=== PATIENT | female | born 1945 | race Caucasian/White ===

== ENCOUNTER 2021-02-01 14:10 | Inpatient (IN) | payer OTHER ==
[~2021-02-01] VITALS: Ht 165.1 cm; Wt 82.8 kg
[~2021-02-01 14:10] MED LIST: ALBU90OI; CONEST.625; DESL5 PO; Estradiol1 MG; FLUSAL1005; FLUT220OIA; GABA100; GRALISE1 EACH; HYDCHL12.5 PO; IPRA.06NI; LEVSOD100 PT; LEVSOD50; LORA10; METF500C PO; OXYACE5T PO; PRAV20; PROACE100; Prilosec Otc20 MG; SALM50IP; VITAMIN D31000 UNI1 PO
[2021-02-01] MEDS ORDERED: TRAM50 PO (14:25)
[2021-02-01] MEDS ORDERED: Prinivil10 MG PO (14:27)
[2021-02-01] MEDS ORDERED: MONT10T PO (14:28)
[2021-02-01] MEDS ORDERED: Ventolin/Prove6.7 GM INH (14:29)
[2021-02-01 14:32] LABS: BASOPHILS ABSOLUTE AUTO 0.05 K/mm3 (0.00-0.23); BASOPHILS PERCENT AUTO 1 % (0-2); EOSINOPHILS ABSOLUTE AUTO 0.05 K/mm3 (0.00-0.68); EOSINOPHILS PERCENT AUTO 1 % (0-6); Hematocrit 40.6 % (33.0-51.0); Hemoglobin 13.6 g/dL (11.5-16.0); IMMATURE GRAN ABSOLUTE AUTO 0.02 K/mm3 (0.00-0.10); IMMATURE GRAN PERCENT AUTO 0 % (0-1); LYMPHOCYTES ABSOLUTE AUTO 1.75 K/mm3 (0.84-5.20); LYMPHOCYTES PERCENT AUTO 19 % (21-46); MONOCYTES ABSOLUTE AUTO 0.68 K/mm3 (0.16-1.47); MONOCYTES PERCENT AUTO 7 % (4-13); Mean Corpuscular HGB 29.8 pg (26.0-34.0); Mean Corpuscular HGB Conc 33.5 g/dL (31.5-36.5); Mean Corpuscular Volume 89 fL (80-100); NEUTROPHILS ABSOLUTE AUTO 6.67 K/mm3 (1.96-9.15); NEUTROPHILS PERCENT AUTO 72 % (41-73); Platelet Count 323 K/mm3 (150-400); RDW Standard Deviation 45.6 fL (35.1-46.3); Red Blood Cell Count 4.56 M/mm3 (3.80-5.20); White Blood Cell Count 9.22 K/mm3 (4.00-11.30)
[2021-02-01 14:49] LABS: Alanine Aminotransfer (ALT/SGP 23 U/L (12-78); Albumin, Blood 3.8 g/dL (3.4-5.0); Albumin/Globulin Ratio 1.1 (0.8-1.8); Alk Phos 75 U/L (50-136); Anion Gap 5 mmol/L (6-16); Aspartate Aminotrans (AST/SGOT 18 U/L (12-37); Bilirubin, Total 0.6 mg/dL (0.1-1.0); Blood Urea Nitrogen 15 mg/dL (8-24); Bun/Creatinine Ratio 18.6 (12.0-20.0); CO2, Blood 26 mmol/L (21-32); Calcium, Blood 9.4 mg/dL (8.5-10.1); Chloride, Blood 104 mmol/L (98-108); Creatinine, Blood 0.81 mg/dL (0.40-1.00); Ethanol (Alcohol), Blood, Med <3 mg/dL; Globulin, Blood 3.5 g/dL (2.2-4.0); Glomerular Filtration Rate >60 (60-); Glucose, Blood 139 mg/dL (70-99); Potassium, Blood 3.7 mmol/L (3.5-5.5); Sodium, Blood 135 mmol/L (136-145); Total Protein, Blood 7.3 g/dL (6.4-8.2)
[2021-02-01 15:12] LABS: International Normalized Ratio 0.96; Prothrombin Time Results 10.4 Sec (9.7-11.5)
[2021-02-01 15:28] LABS: Source, Urine Clean Catch
[2021-02-01 15:35] LABS: Appearance, Urine Clear (Clear); Bilirubin, Urine Neg (Neg); Blood, Urine 1+ (Neg); Color, Urine Yellow (P-Yellow); Glucose Qualitative, Urine Neg (Neg); Ketones, Urine 2+ (Neg); Leukocyte Esterase, Urine Neg (Neg); Nitrite, Urine Neg (Neg); Protein, Urine Neg (Neg); Specific Gravity, Urine 1.005 (1.003-1.022); Urobilinogen, Urine NORM (Normal)
[2021-02-01 15:45] LABS: Bacteria Not Seen /hpf; Squamous Epithelial Cells Rare /hpf (Few); White Blood Cells, Urine 0-2 /hpf (0-5)
[2021-02-01] MEDS ORDERED: ESTRADIOL1 MG PO (17:18)
[2021-02-01] MEDS ORDERED: NEURONTIN300 MG PO (17:19)
[2021-02-02 05:35] LABS: BASOPHILS ABSOLUTE AUTO 0.08 K/mm3 (0.00-0.23); BASOPHILS PERCENT AUTO 1 % (0-2); EOSINOPHILS ABSOLUTE AUTO 0.12 K/mm3 (0.00-0.68); EOSINOPHILS PERCENT AUTO 1 % (0-6); Hematocrit 41.2 % (33.0-51.0); Hemoglobin 13.8 g/dL (11.5-16.0); IMMATURE GRAN ABSOLUTE AUTO 0.03 K/mm3 (0.00-0.10); IMMATURE GRAN PERCENT AUTO 0 % (0-1); LYMPHOCYTES ABSOLUTE AUTO 2.11 K/mm3 (0.84-5.20); LYMPHOCYTES PERCENT AUTO 22 % (21-46); MONOCYTES ABSOLUTE AUTO 0.81 K/mm3 (0.16-1.47); MONOCYTES PERCENT AUTO 8 % (4-13); Mean Corpuscular HGB 29.7 pg (26.0-34.0); Mean Corpuscular HGB Conc 33.5 g/dL (31.5-36.5); Mean Corpuscular Volume 89 fL (80-100); Mean Platelet Volume 9.9 fL (9.1-12.4); NEUTROPHILS ABSOLUTE AUTO 6.53 K/mm3 (1.96-9.15); NEUTROPHILS PERCENT AUTO 68 % (41-73); Platelet Count 325 K/mm3 (150-400); RDW Coefficient Variation 14.1 % (11.7-14.2); RDW Standard Deviation 45.4 fL (35.1-46.3); Red Blood Cell Count 4.65 M/mm3 (3.80-5.20); White Blood Cell Count 9.68 K/mm3 (4.00-11.30)
[2021-02-02 06:04] LABS: Anion Gap 7 mmol/L (6-16); Blood Urea Nitrogen 11 mg/dL (8-24); Bun/Creatinine Ratio 13.7 (12.0-20.0); CO2, Blood 24 mmol/L (21-32); Calcium, Blood 9.4 mg/dL (8.5-10.1); Chloride, Blood 107 mmol/L (98-108); Glomerular Filtration Rate >60 (60-); Glucose, Blood 103 mg/dL (70-99); Magnesium, Blood 2.3 mg/dL (1.6-2.4); Potassium, Blood 3.9 mmol/L (3.5-5.5); Sodium, Blood 138 mmol/L (136-145)
--- NOTE | 2021-02-02 07:08 | NUR ---
Rn summry: Patient remains alert and oriented. She has not slept much this shift. This morning rt hand floor specialist sl weaker, but gets stronger as she education site manager. facial droop sl more. Pt is tired and weakness seems sl more pronounced. Pt is having RT hip pain that is chronic. Pt has been NPO. IV fluids started this am, fentanyl 50 mcg given for hip pain. Pt is able to get up to bedside commode with walker and gaitbelt and 1 assist. Call light in reach, uses it appropriately. Report to and indroduction of Kirill GERARD for day shift. Pt is resting at this time. Form for MRI sent.
--- NOTE | 2021-02-02 12:44 | NUR ---
BEDSIDE SWALLOW EVAL COMPLETED AT THIS TIME REQUESTED BY DR. HOUSTON. DIET ORDERED PER PROTOCOL. NO ST AVAILABLE TODAY.
--- NOTE | 2021-02-02 17:45 | NUR ---
SHIFT SUMMARY. A&OX4, ONE ASSIST WITH FWW AND GB TO BSC, PLEASANT AND COOPERATIVE WITH CARE. PT CONTINUES WITH R SIDED WEAKNESS OF EXTREMITIES, R SIDED FACIAL DROOP, AND R SIDE NEGLECT. NORMAN. NEURO CHECKS REMAINED THE SAME T/O SHIFT. MRI COMPLETED THIS AM, PREMEDICATED WITH FENTANYL PRIOR TO PROCEDURE. PT C/O H/A, APAP GIVEN WITH GOOD EFFECT. PT C/O R HIP MUSCLE SPASMS, RECIEVED ORDER FOR FLEXERIL WHICH PT TAKES AT HOME. PT TOLERATED TAKING PILLS WHOL IN APPLESAUCE. DAUGHTER AT BEDSIDE THIS AFTERNOON. NO OTHER CHANGES OR CONCERNS.
[2021-02-03 07:31] LABS: Source, Urine Catheter
--- NOTE | 2021-02-03 07:36 | NUR ---
Rn summary: Pt is alert, oriented to self and situation and family. Pt has been more uncomfortable tonight. Pt is having spams in rt leg, mostly upper thigh. Pt states pain is a 10/10. Patient facial droop seems more pronounced this shift. Rt arm more stiff, not moving it as much. Pt was having difficulty sitting at bedside, poor balance, was able to stand with gaitbelt but unable to move rt leg enough to pivot transfer to commode. Pt was incontinent x1 then was unable to void. Pt bladder scan showed > 700cc. 14 fr daniel cath was placed with clear yellow urine, ua sample sent to lab. Pt did use home bipap while sleeping. pt medicated x2 for pain with fentanyl 50 mcg with moderate relief. Pain is better if she lies on her back. Bed alarm is on and call light in reach.
[2021-02-03 07:44] LABS: Appearance, Urine Clear (Clear); Bilirubin, Urine Neg (Neg); Blood, Urine Neg (Neg); Color, Urine Yellow (P-Yellow); Glucose Qualitative, Urine Neg (Neg); Ketones, Urine 2+ (Neg); Leukocyte Esterase, Urine Neg (Neg); Nitrite, Urine Neg (Neg); Protein, Urine 1+ (Neg); Specific Gravity, Urine 1.015 (1.003-1.022); Urobilinogen, Urine NORM (Normal)
--- NOTE | 2021-02-03 13:59 | NUR ---
ADMIT: 02/01/21 DISCHARGE: DX: Acute CVA CC: kwilcox RICHARD CALL: RESIDENCE: home CAREGIVER: Cody Santos, Child, Paulina Ennis, Child, DX: GERD, metablic syndrome x, hyperlipidemia, see list DME: knee brace CCM: none HOME HEALTH: none SUMMARY: Update 02/03/21- per chart review with Dr. Lang, no d/c plan at this time. Pt will need rehab when she is stable to discharge.-casimiro
--- NOTE | 2021-02-03 18:26 | NUR ---
PATIENT A/OX4 AND CALM AND COOPERATIVE WITH CARE. R ARM FLACCID, ABLE TO WIGGLE FINGERS. R LEG VERY WEAK AND CONITUES TO HAVE MUSCLE CONTRATIONS THAT ARE VERY PAINFUL. MEDICATING FOR PAIN WITH GABAPENTIN, FLEXERIL AND FENTANYL. PT/OT WORKED WITH PATIENT TODAY, SHE WAS ABLE TO SIT AT THE SIDE OF THE BED, BUT UNABLE TO STAND. MIKKI WALKER AT BEDSIDE TO ASSIST WITH TRANSFERS. ST ORDERED TODAY, PATIENT HAS NOT YET BEEN SEEN. DAUGHTER AT BEDSIDE THIS EVENING AND WOULD LIKE TO HAVE A MEETING WITH THE DOCTOR TO COME UP WITH A PLAN FOR DISCHARGE. SKIN INTACT. 20G IV TO L AC WNL AND SL.
[2021-02-04 05:14] LABS: BASOPHILS ABSOLUTE AUTO 0.06 K/mm3 (0.00-0.23); BASOPHILS PERCENT AUTO 1 % (0-2); EOSINOPHILS ABSOLUTE AUTO 0.41 K/mm3 (0.00-0.68); EOSINOPHILS PERCENT AUTO 5 % (0-6); Hematocrit 38.8 % (33.0-51.0); Hemoglobin 12.7 g/dL (11.5-16.0); IMMATURE GRAN ABSOLUTE AUTO 0.01 K/mm3 (0.00-0.10); IMMATURE GRAN PERCENT AUTO 0 % (0-1); LYMPHOCYTES PERCENT AUTO 26 % (21-46); MONOCYTES ABSOLUTE AUTO 0.76 K/mm3 (0.16-1.47); MONOCYTES PERCENT AUTO 9 % (4-13); Mean Corpuscular HGB 29.7 pg (26.0-34.0); Mean Corpuscular HGB Conc 32.7 g/dL (31.5-36.5); Mean Corpuscular Volume 91 fL (80-100); Mean Platelet Volume 9.9 fL (9.1-12.4); NEUTROPHILS PERCENT AUTO 59 % (41-73); Platelet Count 293 K/mm3 (150-400); RDW Coefficient Variation 14.2 % (11.7-14.2); RDW Standard Deviation 47.8 fL (35.1-46.3); Red Blood Cell Count 4.27 M/mm3 (3.80-5.20); White Blood Cell Count 8.14 K/mm3 (4.00-11.30)
[2021-02-04 05:44] LABS: Anion Gap 5 mmol/L (6-16); Blood Urea Nitrogen 9 mg/dL (8-24); Bun/Creatinine Ratio 11.3 (12.0-20.0); CHOL/HDL RATIO 3.5; CO2, Blood 28 mmol/L (21-32); Calcium, Blood 8.8 mg/dL (8.5-10.1); Chloride, Blood 106 mmol/L (98-108); Cholesterol 183 mg/dL (50-200); Glomerular Filtration Rate >60 (60-); Glucose, Blood 124 mg/dL (70-99); HDL Cholesterol 52 mg/dL (>39); LDL/HDL RATIO 2.1; Low Density Lipoprotein Chol 111 mg/dL (0-110); Potassium, Blood 3.5 mmol/L (3.5-5.5); Sodium, Blood 139 mmol/L (136-145); Triglycerides 99 mg/dL (30-160); Very Low Density Lipoprot Chol 19 mg/dL (6-32)
--- NOTE | 2021-02-04 07:53 | NUR ---
Rn summary: Patient is alert and oriented. Pt having less cramps to rt leg, does better if leg is kept straight. Pt has increased weakness to rt arm, arm is more stiff, minimal movement, no electronic device repairer. Continues to have rt facial droop. Pt has daniel cath due to retention. Pt was medicated for pain at the beginning of shift , see EMAR and rested well most of the shift. Pt takes pills whole with applesauce, honey thickened liquids. Call light in reach.
--- NOTE | 2021-02-04 16:45 | NUR ---
02/04/21- pt had swallow eval, PT and OT evaluations today and they are recommending that the pt either go to IRU or SNF for rehab. Pt not stable for d/c at this time but will work on packet to send to facility for review. Patient reports that prior to coming into the hospital, she was independent and did not have caregivers. Pt lives alone but has a granddaughter and friends that check on her. -casimiro
--- NOTE | 2021-02-04 19:13 | NUR ---
SHIFT SUMMARY PATIENT MEDICATED X2 FOR PAIN, DENIES NAUSEA, AND SHORTNESS OF BREATH. ROOM AIR. RIGHT SIDE FLACCID, WORKED WITH OT, UP TO SIDE OF BED WITH ASSIST. DELAROSA PATENT AND DRAINING. FAILED BARRIUM SWALLOW, DOBHOFF PLACED AND VERIFIED BY XRAY. NEW ORDERS FOR CONTINOUS TUBE FEED. PLEASANT AND COOPERATIVE WITH CARE.
--- NOTE | 2021-02-05 03:52 | NUR ---
SHIFT SUMMARY PT HAS RESTED OFF AND ON T/O THE SHIFT. SHE CONTINUES TO EXPERIENCE DISCOMFORT IN HER LEG, AND INTERMITTENT MURRIETA. MEDICATED PER EMAR FOR PAIN. DOBHOFF IN PLACE, CONFIRMED BY X-RAY YESTERDAY DURING DAYSHIFT. TUBE FEEDS WERE ORDRED AND HAVE BEEN INITIATED THIS SHIFT, PT TOLERATING WELL AT THIS TIME. NO ACUTE CHANGES OVERNIGHT. BED IN LOWEST POSITION, CALL LIGHT WITHIN REACH.
[2021-02-05 07:19] LABS: Anion Gap 6 mmol/L (6-16); Blood Urea Nitrogen 10 mg/dL (8-24); CO2, Blood 27 mmol/L (21-32); Chloride, Blood 105 mmol/L (98-108); Creatinine, Blood 0.71 mg/dL (0.40-1.00); Glomerular Filtration Rate >60 (60-); Glucose, Blood 138 mg/dL (70-99); Magnesium, Blood 2.3 mg/dL (1.6-2.4); Phosphorus, Blood 4.4 mg/dL (2.5-4.9); Potassium, Blood 3.9 mmol/L (3.5-5.5); Sodium, Blood 138 mmol/L (136-145)
--- NOTE | 2021-02-05 12:11 | NUR ---
02/05/21- SPOKE WITH NURSE AND SHE REPORTS THAT FAMILY WOULD LIKE PT TO GO EITHER [facility] OR [facility] IN [place] FOR REHAB AND NO [facility] OR [facility] FACILITIES. DR. WHEAT STATES THAT PT COULD POTENTIALLY DISCHARGE TOMORROW. SPOKE WITH [facility] IN [place], THEY HAVE A BED AVAILABLE. PACKET SENT TO [facility]: [phone]. NOTIFIED FLOOR NURSE.-DESTINI
--- NOTE | 2021-02-05 16:18 | NUR ---
SHIFT SUMMARY PATIENT MEDICATED FOR PAIN X2. PATIENT DENIES NAUSEA AND SHORTNESS OF BREATH. INCREASED PATIENT CONTINUOUS FEEDING TO A RATE OF 35ML PER ORDERS. PATIENT TOLERATED WELL. DELAROSA IS PATENT AND DRAINING TO GRAVITY. ST WORKED WITH PATIENT TODAY. PT ALSO WORKED WITH PATIENT TODAY. PLEASANT AND COOPERATIVE WITH CARE. SON VISITED IN AFTERNOON.
[2021-02-06 06:28] LABS: Magnesium, Blood 2.2 mg/dL (1.6-2.4); Phosphorus, Blood 3.9 mg/dL (2.5-4.9)
--- NOTE | 2021-02-06 06:43 | NUR ---
SHIFT SUMMARY ALERT, ABLE TO MAKE NEEDS KNOWN. COOPERATIVE WITH CARE. CALLS AND ANSWERS QUESTIONS APPROPRIATELY. CONTINUES TO C/O PAIN/DISCOMFORT TO R HIP/LEG; MEDICATED PER EMAR AND REPOSITIONED T/O THE NIGHT. DELAROSA SECURED AND PATENT; DRAINING TO GRAVITY. CONT FEEDINGS TO DOBHOFF; TOLERATING WELL. NO OTHER ACUTE CHANGES NOTED. BED REMAINED IN LOWEST POSITION. CALL LIGHT AND BELONGINGS WITHIN REACH. CONTINUE WITH CURRENT PLAN OF CARE. REPORT TO ONCOMING RN.
--- NOTE | 2021-02-06 17:17 | NUR ---
PATIENT ALERT AND ORIENTATED. BECAME PRETTY TIRED THROUGHOUT THE DAY. PATIENT COMPLAINED OF PAIN 10/10 TO RIGHT HIP AND LEG AND WAS TREATED PER EMAR. PATIENTS BP INCREASED TO 189/[address] WHEAT WAS NOTIFED AND PATIENT WAS TREATED PER EMAR. PATIENT IS STILL RECIEVING FEEDINGS THROUGH HER DOBHOFF. PATIENT IS TO RECIEVE A PEG TUBE TOMORROW 02/07/2021. BED IS IN LOWEST POSITIONG AND CALL LIGHT IS WITHIN REACH. WILL CONTINUE CARE UNTIL NIGHT RN COMES ON SHIFT.
[2021-02-06 17:37] LABS: SARS-Cov-2 (COVID-19) PCR, MMC NEGATIVE (NEGATIVE)
--- NOTE | 2021-02-06 17:55 | NUR ---
PLEASE REFER TO STUDENT NOT FOR SHIFT SUMMARY.
--- NOTE | 2021-02-07 03:58 | NUR ---
SHIFT SUMMARY ALERT, ABLE TO MAKE NEEDS KNOWN. COOPERATIVE WITH CARE. CALLS AND ANSWERS QUESTIONS APPROPRIATELY. C/O PAIN/DISCOMFORT TO R HIP/LEG; MEDICATED PER EMAR. REPOSITIONED TOLERATED. EGG CRATE PLACED ON BED FOR COMFORT. APPEARS TO HAVE RESTED MORE THIS NIGHT THAT PREVIOUS. NPO AT THIS POINT. TUBE FEEDINGS STOPPED FOR ANTICIPATED PEG PLACEMENT. IV FLUIDS CONTINUE TO INFUSE WITHOUT COMPLICATION. BED REMAINED IN LOWEST POSITION; ALARM ON. CALL LIGHT AND BELONGINGS WITHIN REACH. CONTINUE WITH CURRENT PLAN OF CARE. REPORT TO ONCOMING RN.
[2021-02-07 06:44] LABS: Magnesium, Blood 2.2 mg/dL (1.6-2.4); Phosphorus, Blood 3.8 mg/dL (2.5-4.9)
--- NOTE | 2021-02-07 10:40 | NUR ---
DAY SURGERY PT LEFT FOR PEG TUBE PLACEMENT WITH DR DURAN AT APPROXIMATELY 1040 THIS MORNING.
--- NOTE | 2021-02-07 12:28 | NUR ---
02/07/21- per chart review with Dr. Galdamez, [facility] will send an update packet to [facility] and packet to [facility] for IRU. Pt having PEG placement today and will be stable for d/c come Wednesday. -casimiro
--- NOTE | 2021-02-07 13:29 | NUR ---
02/07/21 1329 KYLE BLACK History, Chart, Medications and Allergies reviewed before start of procedure. 3-LEAD EKG REVIEWED WITH PHYSICIAN PRIOR TO START OF PROCEDURE. O2 VIA POM INTACT THROUGHOUT SEDATION/PROCEDURE. MAC WITH DR. YOON. MONITOR INTACT WITH CONTINUOUS PULSE OXIMETRY AND INTERMITTENT BP.
--- NOTE | 2021-02-07 17:34 | NUR ---
SHIFT SUMMARY PT ARRIVED BACK FROM DAY SURGERY AT APPROXIMATELY 1310. PT HAD A PEG TUBE PLACED BY DR. DURAN TODAY. PT WAS LETHARGIC UPON HER ARRIVAL TO MED FLOOR. PT REPORTED PAIN AND CRAMPING FROM GAS. PT WAS MEDICATED PER EMAR. PT WILL HAVE IV FLUIDS DISCONTINUED TOMORROW AND THE PEG FEEDING BOLUS' WILL BEGIN 02/08/21. PT HAS HAD SIGNIFICANT OUTPUT IN THE DELAROSA. NEURO CHECKS HAVE BEEN COMPLETED THROUGHOUT THE DAY BUT HAVE BEEN UNCHANGED. PT IS ALERT AND ORIENTED. PT IS RESTING IN BED AT THIS TIME
--- NOTE | 2021-02-08 05:22 | NUR ---
SHIFT SUMMARY: CVA PT W R SIDED WEAKNESS. A7OX2 SLOW APPROPERIATE VERBAL RESPONSE MAKES WISHES KNOWN. DOBHOFF REMOVED AND SURGICAL PLACED PEG TUBE PLACE X1 DAY.DELAROSA IN PLACE DRAINING CLEAR YELLOW. 22 G R FA PATENT INFUSING AND FLUSHS WELL. PT C/O CONSTIPATION WAS GIVEN A DUCALAX SUSPOSITORY PARTIALLY EFFECTIVE. PT USES CALL LIGHT APPROPERIATELY BED LOWERED
[2021-02-08 06:30] LABS: BASOPHILS ABSOLUTE AUTO 0.04 K/mm3 (0.00-0.23); BASOPHILS PERCENT AUTO 0 % (0-2); EOSINOPHILS ABSOLUTE AUTO 0.19 K/mm3 (0.00-0.68); EOSINOPHILS PERCENT AUTO 2 % (0-6); Hematocrit 39.8 % (33.0-51.0); Hemoglobin 13.2 g/dL (11.5-16.0); IMMATURE GRAN ABSOLUTE AUTO 0.04 K/mm3 (0.00-0.10); IMMATURE GRAN PERCENT AUTO 0 % (0-1); LYMPHOCYTES PERCENT AUTO 14 % (21-46); MONOCYTES ABSOLUTE AUTO 0.72 K/mm3 (0.16-1.47); MONOCYTES PERCENT AUTO 6 % (4-13); Mean Corpuscular HGB 30.1 pg (26.0-34.0); Mean Corpuscular HGB Conc 33.2 g/dL (31.5-36.5); Mean Corpuscular Volume 91 fL (80-100); Mean Platelet Volume 10.5 fL (9.1-12.4); NEUTROPHILS ABSOLUTE AUTO 9.54 K/mm3 (1.96-9.15); NEUTROPHILS PERCENT AUTO 78 % (41-73); Platelet Count 342 K/mm3 (150-400); RDW Coefficient Variation 14.1 % (11.7-14.2); RDW Standard Deviation 47.8 fL (35.1-46.3); Red Blood Cell Count 4.39 M/mm3 (3.80-5.20); White Blood Cell Count 12.23 K/mm3 (4.00-11.30)
[2021-02-08 06:53] LABS: Anion Gap 7 mmol/L (6-16); Blood Urea Nitrogen 11 mg/dL (8-24); Bun/Creatinine Ratio 15.6 (12.0-20.0); CO2, Blood 26 mmol/L (21-32); Calcium, Blood 8.8 mg/dL (8.5-10.1); Chloride, Blood 104 mmol/L (98-108); Creatinine, Blood 0.71 mg/dL (0.40-1.00); Glomerular Filtration Rate >60 (60-); Glucose, Blood 157 mg/dL (70-99); Potassium, Blood 4.1 mmol/L (3.5-5.5); Sodium, Blood 137 mmol/L (136-145)
--- NOTE | 2021-02-08 17:07 | NUR ---
SHIFT SUMMARY CVA PATIENT. RIGHT SIDED WEAKNESS. 2 PERSON ASSIST. PATIENT HAS BEEN SLEEPING OFF AND ON DURING SHIFT. PATIENT HAS TOLERATED TUBE FEEDS AND MEDICATIONS THROUGH TUBE WELL TODAY. DELAROSA IS DRAINING CLEAR YELLOW LIQUID TO GRAVITY. PATIENT HAS A 22 GAUGE IN RIGHT FOREARM THAT IS PATENT AND FLUSHES WELL. PATIENT HAS HAD TWO BOWEL MOVEMENTS DURING SHIFT. PATIENT WAS MEDICATED 1X WITH OXYCONINE FOR PAIN.
--- NOTE | 2021-02-09 03:50 | NUR ---
SHIFT SUMMARY PT HAS RESTED OFF AND ON T/O THE SHIFT. PT TOLERATED TUBE FEEDS THIS SHIFT. PT REMAINS WEAK AND DECONDITIONED. 2 PERSON TURN AND CHANGE. RIGHT ARM REMAINS FLACCID. NEURO ASSESSMENT UNCHANGED THIS SHIFT. NO ACUTE CHANGES OVERNIGHT. BED IN LOWEST POSITION, CALL LIGHT WITHIN REACH.
[2021-02-09 05:43] LABS: BASOPHILS ABSOLUTE AUTO 0.05 K/mm3 (0.00-0.23); BASOPHILS PERCENT AUTO 0 % (0-2); EOSINOPHILS ABSOLUTE AUTO 0.36 K/mm3 (0.00-0.68); EOSINOPHILS PERCENT AUTO 2 % (0-6); Hemoglobin 13.2 g/dL (11.5-16.0); IMMATURE GRAN ABSOLUTE AUTO 0.05 K/mm3 (0.00-0.10); IMMATURE GRAN PERCENT AUTO 0 % (0-1); LYMPHOCYTES ABSOLUTE AUTO 2.05 K/mm3 (0.84-5.20); LYMPHOCYTES PERCENT AUTO 14 % (21-46); MONOCYTES ABSOLUTE AUTO 1.16 K/mm3 (0.16-1.47); MONOCYTES PERCENT AUTO 8 % (4-13); Mean Corpuscular HGB 29.5 pg (26.0-34.0); Mean Corpuscular Volume 90 fL (80-100); Mean Platelet Volume 10.2 fL (9.1-12.4); NEUTROPHILS ABSOLUTE AUTO 11.49 K/mm3 (1.96-9.15); NEUTROPHILS PERCENT AUTO 76 % (41-73); Platelet Count 380 K/mm3 (150-400); RDW Coefficient Variation 14.1 % (11.7-14.2); RDW Standard Deviation 46.5 fL (35.1-46.3); Red Blood Cell Count 4.47 M/mm3 (3.80-5.20); White Blood Cell Count 15.16 K/mm3 (4.00-11.30)
[2021-02-09 06:09] LABS: Alanine Aminotransfer (ALT/SGP 22 U/L (12-78); Albumin, Blood 2.7 g/dL (3.4-5.0); Albumin/Globulin Ratio 0.7 (0.8-1.8); Alk Phos 73 U/L (50-136); Anion Gap 6 mmol/L (6-16); Aspartate Aminotrans (AST/SGOT 15 U/L (12-37); Bilirubin, Total 0.6 mg/dL (0.1-1.0); Blood Urea Nitrogen 13 mg/dL (8-24); CO2, Blood 26 mmol/L (21-32); Calcium, Blood 8.8 mg/dL (8.5-10.1); Chloride, Blood 105 mmol/L (98-108); Creatinine, Blood 0.72 mg/dL (0.40-1.00); Glomerular Filtration Rate >60 (60-); Glucose, Blood 139 mg/dL (70-99); Potassium, Blood 4.1 mmol/L (3.5-5.5); Sodium, Blood 137 mmol/L (136-145); Total Protein, Blood 6.7 g/dL (6.4-8.2)
[2021-02-09 08:15] LABS: Source, Urine Catheter
[2021-02-09 08:28] LABS: Appearance, Urine Clear (Clear); Bilirubin, Urine Neg (Neg); Blood, Urine 1+ (Neg); Color, Urine Yellow (P-Yellow); Glucose Qualitative, Urine Neg (Neg); Ketones, Urine Neg (Neg); Leukocyte Esterase, Urine Neg (Neg); Nitrite, Urine Neg (Neg); Protein, Urine 1+ (Neg); Urobilinogen, Urine 1+ (Normal)
[2021-02-09 08:42] LABS: Bacteria Rare /hpf; Squamous Epithelial Cells Rare /hpf (Few)
--- NOTE | 2021-02-09 17:20 | NUR ---
SHIFT SUMMARY CVA PATIENT. RIGHT SIDED WEAKNESS. PATIENT HAS USED BEDPAN DURING SHIFT. PATIENT HAS BEEN DROWSY THROUGHOUT SHIFT. PATIENT HAS TOLERATED FEEDS WELL DURING SHIFT EVERY THREE HOURS. DELAROSA IS DRAINING CLEAR YELLOW LIQUID. PATIENT HAS HAD HEART RATE SLIGHTLY ELEVATED AND WILL CONFER WITH DR TOMORROW AM. PATIENT HAS A 22 GAUGE IN THE RIGHT FOREARM. PATIENT HAS HAD A COUPLE BOWEL MOVEMENTS THROUGHTOUT THE SHIFT AND HAS REQUESTED PAIN MEDICATION TWICE DURING SHIFT. VITAL SIGNS REVIEWED AND WILL CONTINUE TO MONITOR UNTIL SHIFT CHANGE
--- NOTE | 2021-02-10 04:04 | NUR ---
SHIFT SUMMARY PT HAS RESTED MOST OF THE NIGHT, MEDICATED FOR PAIN WITH EFFECT. PT TOLERATED TUBE FEEDS. PT DAUGHTER IN WITH PT THIS SHIFT AND EXPRESSED CONCERNS ABOUT DISCHARGE PLANS AND WONDERS WHEN PT WILL BE DISCHARGED TO STROKE CENTER. SHE SPOKE DIRECTLY WITH [employer] WHO STATES THAT DISCHARGE PLANS WILL NOT TAKE PLACE OVER THE WEEKEND BUT ARRANGEMENTS WILL BE MADE DURING THE WEEK. CONCERN WAS EXPRESSED ALSO BY DAUGHTER OF [facility] AND [place]. PROVIDERS ARE AWARE OF BOTH OF THESE CONCERS AND THEY ARE NOTED IN PROGRESS NOTES. PT MEDICATED FOR HTN WITH SCHEDULED MEDS WITH EFFECT. PT TOLERATING BOLUS TUBE FEEDS. A/O AND CALLS APPROPRAITELY, PT STILL WEAK WITH RIGHT SIDED WEAKNESS. NO ACUTE CHANGES OVERNIGHT. BED IN LOWEST POSITION, CALL LIGHT WITHIN REACH.
[2021-02-10 05:57] LABS: BASOPHILS ABSOLUTE AUTO 0.05 K/mm3 (0.00-0.23); BASOPHILS PERCENT AUTO 1 % (0-2); EOSINOPHILS ABSOLUTE AUTO 0.34 K/mm3 (0.00-0.68); EOSINOPHILS PERCENT AUTO 3 % (0-6); Hematocrit 39.7 % (33.0-51.0); Hemoglobin 13.2 g/dL (11.5-16.0); IMMATURE GRAN ABSOLUTE AUTO 0.03 K/mm3 (0.00-0.10); IMMATURE GRAN PERCENT AUTO 0 % (0-1); LYMPHOCYTES ABSOLUTE AUTO 1.56 K/mm3 (0.84-5.20); LYMPHOCYTES PERCENT AUTO 15 % (21-46); MONOCYTES ABSOLUTE AUTO 0.88 K/mm3 (0.16-1.47); MONOCYTES PERCENT AUTO 8 % (4-13); Mean Corpuscular HGB 29.8 pg (26.0-34.0); Mean Corpuscular HGB Conc 33.2 g/dL (31.5-36.5); Mean Corpuscular Volume 90 fL (80-100); Mean Platelet Volume 10.2 fL (9.1-12.4); NEUTROPHILS ABSOLUTE AUTO 7.88 K/mm3 (1.96-9.15); NEUTROPHILS PERCENT AUTO 73 % (41-73); Platelet Count 394 K/mm3 (150-400); RDW Standard Deviation 45.5 fL (35.1-46.3); Red Blood Cell Count 4.43 M/mm3 (3.80-5.20); White Blood Cell Count 10.74 K/mm3 (4.00-11.30)
[2021-02-10 06:18] LABS: Anion Gap 6 mmol/L (6-16); Blood Urea Nitrogen 13 mg/dL (8-24); Bun/Creatinine Ratio 18.5 (12.0-20.0); CO2, Blood 27 mmol/L (21-32); Calcium, Blood 9.3 mg/dL (8.5-10.1); Chloride, Blood 103 mmol/L (98-108); Glomerular Filtration Rate >60 (60-); Glucose, Blood 151 mg/dL (70-99); Potassium, Blood 4.4 mmol/L (3.5-5.5); Sodium, Blood 136 mmol/L (136-145)
--- NOTE | 2021-02-10 10:58 | NUR ---
Update 02/10/21 - spoke with IRU in [place] and requested updated information for review. They have tentatively approved the pt for therapy and will request authorization through [facility] for placement for tomorrow. Provided facility with updated contact information so they don't have to try and go through the clinic with hospital patients. IRU provided [facility] co-pay of $215/day for days 1-8 and then 100% starting on day 9. Called and updated daughter Naomi and she asked to speak with Dr. Isidro Prescott daughter's information so daughter can ask questions. -casimiro
--- NOTE | 2021-02-10 17:39 | NUR ---
PATIENT IS ALERT AND ORIENTED. SHE HAS SLEPT MOST OF THE SHIFT. SHE REFUSED SPEECH THERAPY. SHE WORKED WITH PHYSICAL THERAPY A LITTLE BUT BUT KEPT FALLING ASLEEP. SHE C/O RIGHT LEG PAIN, MEDICATED PER EMAR. A RASH ON HER BACK WAS ASSESSED BY DR. MONTAÑO AND MEDICATED PER EMAR. THE PATIENT'S DAUGHTER IS AT THE BEDSIDE NOW. DELAROSA IS IN PLACE AND PATENT. PATIENT HAS TOLERATED HER FEEDINGS TODAY AND HAS BEEN INCREASED TO 1.5 CANS Q3H. PLAN IS TO TRANSFER TO IRU IN [place] TOMORROW.
--- NOTE | 2021-02-11 04:02 | NUR ---
SHIFT SUMMARY ADMITTED FOR ACUTE CVA. FULL CODE. RT SIDED DEFICITS. PEG TUBE BOLLUS FEEDINGS. DELAROSA IN PLACE FOR RETENTION. PLAN IS FOR DC TODAY TO REHAB IN [place]. NO NEW CONCERNS THIS SHIFT
[2021-02-11 05:38] LABS: BASOPHILS ABSOLUTE AUTO 0.06 K/mm3 (0.00-0.23); BASOPHILS PERCENT AUTO 1 % (0-2); EOSINOPHILS ABSOLUTE AUTO 0.43 K/mm3 (0.00-0.68); EOSINOPHILS PERCENT AUTO 4 % (0-6); Hematocrit 38.6 % (33.0-51.0); Hemoglobin 12.9 g/dL (11.5-16.0); IMMATURE GRAN ABSOLUTE AUTO 0.03 K/mm3 (0.00-0.10); IMMATURE GRAN PERCENT AUTO 0 % (0-1); LYMPHOCYTES ABSOLUTE AUTO 1.65 K/mm3 (0.84-5.20); LYMPHOCYTES PERCENT AUTO 17 % (21-46); MONOCYTES ABSOLUTE AUTO 0.94 K/mm3 (0.16-1.47); MONOCYTES PERCENT AUTO 10 % (4-13); Mean Corpuscular HGB 30.1 pg (26.0-34.0); Mean Corpuscular HGB Conc 33.4 g/dL (31.5-36.5); Mean Corpuscular Volume 90 fL (80-100); Mean Platelet Volume 10.1 fL (9.1-12.4); NEUTROPHILS PERCENT AUTO 68 % (41-73); Platelet Count 422 K/mm3 (150-400); RDW Coefficient Variation 13.8 % (11.7-14.2); RDW Standard Deviation 45.7 fL (35.1-46.3); Red Blood Cell Count 4.28 M/mm3 (3.80-5.20); White Blood Cell Count 9.81 K/mm3 (4.00-11.30)
[2021-02-11 05:59] LABS: Anion Gap 7 mmol/L (6-16); Blood Urea Nitrogen 16 mg/dL (8-24); Bun/Creatinine Ratio 23.8 (12.0-20.0); CO2, Blood 27 mmol/L (21-32); Chloride, Blood 101 mmol/L (98-108); Creatinine, Blood 0.67 mg/dL (0.40-1.00); Glomerular Filtration Rate >60 (60-); Glucose, Blood 150 mg/dL (70-99); Potassium, Blood 4.4 mmol/L (3.5-5.5); Sodium, Blood 135 mmol/L (136-145)
--- NOTE | 2021-02-11 14:31 | NUR ---
Update 02/11/21: Per IRU staff, pt. will need to make further progress with standing to pivot and with PT. prior to acceptance to the facility. They want to ensure that pt. will be a good canidate to make improvements within the IRU setting. PT. worked with pt. today. Based on the notes, PT is recommending IRU and they do believe she will make progress. PT notes from 02/11 faxed to facility with attention to [facility]. Hopeing to hear back soon. Eunice with care management has updated the patient's daughter and advised her that we will follow-up in the am.
--- NOTE | 2021-02-11 17:02 | NUR ---
PATIENT IS ALERT AND ORIENTED WITH TIMES OF FORGETFULLNESS. THE DISCHARGE PLAN CHANGED, SHE IS NOT YET ACCEPTED BY THE IRU AND NEEDS TO SHOW PROGRESS WITH PT/OT BEFORE THEY WILL ACCEPT HER. DELAROSA IS IN PLACE AND DRAINING. PEG TUBE IS IN PLACE. PATIENT DID WORK MORE WITH ST/OT/PT TODAY. PATIENT WAS ABLE TO SIT UP ON THE SIDE OF THE BED AND STAND WITH GAITBELT AND MODERATE ASSISTANCE FROM PT. PATIENT IS TOLERATING FEEDINGS THROUGH HER PEG TUBE. C/O RIGHT LEG PAIN AND MEDICATED PER EMAR. WILL CONTINUE TO MONITOR
[2021-02-11 17:38] LABS: SARS-Cov-2 (COVID-19) PCR, MMC NEGATIVE (NEGATIVE)
[2021-02-12 04:31] LABS: BASOPHILS ABSOLUTE AUTO 0.07 K/mm3 (0.00-0.23); BASOPHILS PERCENT AUTO 1 % (0-2); EOSINOPHILS ABSOLUTE AUTO 0.54 K/mm3 (0.00-0.68); EOSINOPHILS PERCENT AUTO 5 % (0-6); Hematocrit 40.3 % (33.0-51.0); Hemoglobin 13.4 g/dL (11.5-16.0); IMMATURE GRAN ABSOLUTE AUTO 0.02 K/mm3 (0.00-0.10); IMMATURE GRAN PERCENT AUTO 0 % (0-1); LYMPHOCYTES ABSOLUTE AUTO 2.16 K/mm3 (0.84-5.20); LYMPHOCYTES PERCENT AUTO 22 % (21-46); MONOCYTES ABSOLUTE AUTO 1.02 K/mm3 (0.16-1.47); MONOCYTES PERCENT AUTO 10 % (4-13); Mean Corpuscular HGB 29.6 pg (26.0-34.0); Mean Corpuscular HGB Conc 33.3 g/dL (31.5-36.5); Mean Corpuscular Volume 89 fL (80-100); Mean Platelet Volume 9.8 fL (9.1-12.4); NEUTROPHILS ABSOLUTE AUTO 6.19 K/mm3 (1.96-9.15); NEUTROPHILS PERCENT AUTO 62 % (41-73); Platelet Count 459 K/mm3 (150-400); RDW Coefficient Variation 13.6 % (11.7-14.2); RDW Standard Deviation 44.9 fL (35.1-46.3); Red Blood Cell Count 4.53 M/mm3 (3.80-5.20)
[2021-02-12 04:47] LABS: Anion Gap 6 mmol/L (6-16); Blood Urea Nitrogen 17 mg/dL (8-24); Bun/Creatinine Ratio 24.7 (12.0-20.0); CO2, Blood 28 mmol/L (21-32); Calcium, Blood 8.9 mg/dL (8.5-10.1); Chloride, Blood 101 mmol/L (98-108); Creatinine, Blood 0.69 mg/dL (0.40-1.00); Glomerular Filtration Rate >60 (60-); Glucose, Blood 144 mg/dL (70-99); Potassium, Blood 4.5 mmol/L (3.5-5.5); Sodium, Blood 135 mmol/L (136-145)
--- NOTE | 2021-02-12 04:47 | NUR ---
SHIFT SUMMARY NO ACUTE CHANGES THIS SHIFT, MEDICATED 2X FOR PAIN, SLEPT T/O THE NIGHT & SLEEPING AT THIS TIME, REPOS Q2 T/O SHIFT, CALL LIGHT IN REACH, WILL CONT TO [facility] UNTIL REPORT GIVEN TO DAY RN.
--- NOTE | 2021-02-12 18:04 | NUR ---
SHIFT SUMMARY PATIENT IS A/O X3, BEDBOUND WITH RIGHT SIDED PARALYSIS. INCONTINENT OF BOWELS WITH DELAROSA INSERTED. PATIENT HAS PEG INSTERTED AND IS TOLERATING FEEDS/ MEDS. DISCHARGE PLANS HAVE CHANGED PATIENT IS NOT PARTICIPATING WELL WITH OT AND THE INSTIVE REHAB FASCILITY DOEN NOT FEEL SHE SOULD BE A GOOD FIT. FAMILY WANTS TO TRY BEING PRESENT WITH PATIENT DURING THERAPY TO ENCOURAGE HER. IF THIS DOES NOT WORK THE FAMILY IS HOPEFUL TO SEND PATIENT TO [facility].
--- NOTE | 2021-02-12 18:16 | NUR ---
VISITOR NOTE PATIENTS FAMILY MEMBER, ANUPAM, HAS BEEN GIVEN THE OK TO COME IN AND ASSIST THE PATIENT WITH THERAPY BY THE DR AND NURSING SUPER.
[2021-02-13 05:39] LABS: BASOPHILS ABSOLUTE AUTO 0.09 K/mm3 (0.00-0.23); BASOPHILS PERCENT AUTO 1 % (0-2); EOSINOPHILS ABSOLUTE AUTO 0.51 K/mm3 (0.00-0.68); EOSINOPHILS PERCENT AUTO 5 % (0-6); Hematocrit 39.8 % (33.0-51.0); Hemoglobin 13.3 g/dL (11.5-16.0); IMMATURE GRAN ABSOLUTE AUTO 0.04 K/mm3 (0.00-0.10); IMMATURE GRAN PERCENT AUTO 0 % (0-1); LYMPHOCYTES ABSOLUTE AUTO 1.81 K/mm3 (0.84-5.20); LYMPHOCYTES PERCENT AUTO 18 % (21-46); MONOCYTES ABSOLUTE AUTO 0.96 K/mm3 (0.16-1.47); MONOCYTES PERCENT AUTO 9 % (4-13); Mean Corpuscular HGB 29.8 pg (26.0-34.0); Mean Corpuscular HGB Conc 33.4 g/dL (31.5-36.5); Mean Corpuscular Volume 89 fL (80-100); Mean Platelet Volume 9.8 fL (9.1-12.4); NEUTROPHILS ABSOLUTE AUTO 6.86 K/mm3 (1.96-9.15); NEUTROPHILS PERCENT AUTO 67 % (41-73); Platelet Count 480 K/mm3 (150-400); RDW Coefficient Variation 13.3 % (11.7-14.2); RDW Standard Deviation 43.8 fL (35.1-46.3); Red Blood Cell Count 4.46 M/mm3 (3.80-5.20); White Blood Cell Count 10.27 K/mm3 (4.00-11.30)
--- NOTE | 2021-02-13 06:19 | NUR ---
SHIFT SUMMARY NO ACUTE CHANGES THIS SHIFT, MEDICATED PER MAR FOR R LEG MAIN, REPOS Q2 FOR COMFORT, SLEPT T/O THE NIGHT & SLEEPING AT THIS TIME, CALL LIGHT IN REACH, WILL CONT TO MONITOR UNTIL REPORT GIVEN TO DAY RN.
[2021-02-13 06:26] LABS: Anion Gap 5 mmol/L (6-16); Blood Urea Nitrogen 17 mg/dL (8-24); Bun/Creatinine Ratio 23.8 (12.0-20.0); CO2, Blood 29 mmol/L (21-32); Calcium, Blood 8.7 mg/dL (8.5-10.1); Chloride, Blood 101 mmol/L (98-108); Creatinine, Blood 0.71 mg/dL (0.40-1.00); Glomerular Filtration Rate >60 (60-); Glucose, Blood 148 mg/dL (70-99); Potassium, Blood 4.2 mmol/L (3.5-5.5); Sodium, Blood 135 mmol/L (136-145)
--- NOTE | 2021-02-13 08:47 | NUR ---
Late Entry Update 02/12/21: IRU reached out to Eunice with care management and advised that they will not be accepting pt. See note Eunice's notes for details. Family called the patient advocate at [facility] with frustrations regarding care and facility declining. They do not believe a SNF is appropriate for pt. Requesting that she be moved to a different hospital with a stroke center. Message given to Dr. Prescott and she spoke with patient's family. They have agreed to come to the hospital to participate in physical therapy with pt. to encourage her to make progress.
--- NOTE | 2021-02-13 16:40 | NUR ---
SHIFT SUMMARY PATIENT IS MORE LETHARGIC TODAY THAN IN THE PAST AND HAS A HARD TIME STAYING AWAKE FOR OT AND SPEECH THERAPY. LOWERED HER BACLOFEN DOSAGE TO HELP IMPROVE WITH SLEEPINESS. DAUGHTER SAT IN ON PT WHICH SEEMED TO HELP WITH PARTICIPATION. PATIENT IS STILL FLACCID ON RIGHT SIDE BUT GOT UP INTO THE CHAIR/COMMODE TODAY W/ 3 ASSIST. WILL CONTINUE TO MONITOR FOR PROGRESSION TOWARDS REHAB FACSILITY/SNF.
--- NOTE | 2021-02-14 03:53 | NUR ---
SHIFT SUMMARY NO ACUTE CHANGES THIS SHIFT, MEDICATED 1X FOR R LEG PAIN, NO OTHER C/O ANY KIND, SLEPT T/O THE NIGHT & AT THIS TIME, CALL LIGHT IN PLACE, WILL CONT TO MONITOR UNTIL REPOT GIVEN TO DAY RN.
[2021-02-14 05:38] LABS: BASOPHILS ABSOLUTE AUTO 0.08 K/mm3 (0.00-0.23); BASOPHILS PERCENT AUTO 1 % (0-2); EOSINOPHILS ABSOLUTE AUTO 0.51 K/mm3 (0.00-0.68); EOSINOPHILS PERCENT AUTO 6 % (0-6); Hematocrit 37.2 % (33.0-51.0); Hemoglobin 12.1 g/dL (11.5-16.0); IMMATURE GRAN ABSOLUTE AUTO 0.06 K/mm3 (0.00-0.10); IMMATURE GRAN PERCENT AUTO 1 % (0-1); LYMPHOCYTES PERCENT AUTO 26 % (21-46); MONOCYTES ABSOLUTE AUTO 0.77 K/mm3 (0.16-1.47); MONOCYTES PERCENT AUTO 9 % (4-13); Mean Corpuscular HGB 29.4 pg (26.0-34.0); Mean Corpuscular HGB Conc 32.5 g/dL (31.5-36.5); Mean Corpuscular Volume 90 fL (80-100); Mean Platelet Volume 9.6 fL (9.1-12.4); NEUTROPHILS ABSOLUTE AUTO 4.74 K/mm3 (1.96-9.15); NEUTROPHILS PERCENT AUTO 57 % (41-73); Platelet Count 477 K/mm3 (150-400); RDW Coefficient Variation 13.5 % (11.7-14.2); RDW Standard Deviation 44.8 fL (35.1-46.3); Red Blood Cell Count 4.12 M/mm3 (3.80-5.20); White Blood Cell Count 8.36 K/mm3 (4.00-11.30)
[2021-02-14 06:20] LABS: Anion Gap 7 mmol/L (6-16); Blood Urea Nitrogen 21 mg/dL (8-24); Bun/Creatinine Ratio 27.1 (12.0-20.0); CO2, Blood 27 mmol/L (21-32); Calcium, Blood 8.3 mg/dL (8.5-10.1); Chloride, Blood 100 mmol/L (98-108); Creatinine, Blood 0.78 mg/dL (0.40-1.00); Glomerular Filtration Rate >60 (60-); Glucose, Blood 118 mg/dL (70-99); Potassium, Blood 4.6 mmol/L (3.5-5.5); Sodium, Blood 134 mmol/L (136-145)
--- NOTE | 2021-02-14 09:33 | NUR ---
Notes from [facility] E[facility] Update 02/13/21: Per chart review with Dr. Prescott, patient's family wishing to continue PT and attend with pt. with goal of encouraging her to make enough improvement to be considered appropriate for IRU. Family declining SNF placement as they feel the level of care is not high enough for the pt. Updated PT notes faxed to IRU daily. Will follow-up tomorrow with IRU for update. Discuss care with Dr. Lang when he is on tomorrow also.
--- NOTE | 2021-02-14 13:00 | NUR ---
Update 02/14/21: Per chart review with Dr. Lang, pt. is appropriate for SNF. He has discussed the option of SNF with patient's daughter and she is agreeable. Will fax chart notes and SNF checklist to facility for review. Patient has been appropriate for discharge to inpatient facility with rehab. Will request that SNF review as soon as possible.
--- NOTE | 2021-02-14 13:12 | NUR ---
Update 02/14/21: Per chart review with Dr. Lang, pt. is appropriate for SNF. He has discussed the option of SNF with patient's daughter and she is agreeable. Will fax chart notes and SNF checklist to facility for review. Patient has been appropriate for discharge to inpatient facility with rehab. Will request that SNF review as soon as possible. Jerson ingram requested for only available SNF in [place] currently [facility].
--- NOTE | 2021-02-14 17:03 | NUR ---
PATIENT UP TO CHAIR TO WITH 1-2 ASSIST. R SIDE FLACCID. BOLUS FEEDS QID WITH WATER FLUSHES. PAINFUL R HIP, TREATING WITH BACLOFEN, OXYCODONE AND TYLENOL. WORKING WITH PT/OT/ST. PLAN IS TO D/C TO [facility] TOMORROW AT 0900. COVID TEST WILL BE COMPLETED THIS EVENING.
[2021-02-14 18:47] LABS: SARS-Cov-2 (COVID-19) PCR, MMC NEGATIVE (NEGATIVE)
--- NOTE | 2021-02-14 18:47 | NUR ---
PATIENT DAUGHTER DWIGHT CALLED AND WAS VERY UPSET THAT PATIENT WILL BE GOING TO [facility] IN THE MORNING. SHE SAID THAT HER MOTHER WILL NOT BE GOING THERE AND BEGAN YELLING AT THIS NURSE. DWIGHT WAS TOLD THAT NURSING STAFF DOES NOT MAKE THESE DECISIONS AND THAT HER CONCERNS WOULD BE PASSED ALONG TO THE CORPORATE SALES TRAINER WHO COULD SPEAK WITH THE DOCTOR. BAKARI FROM [facility] WAS CONTACTED AND TOLD ABOUT THE CONVERSATION WITH DWIGHT AND SHE PLANS TO TALK WITH DR. WHEAT.
--- NOTE | 2021-02-15 05:54 | NUR ---
SHIFT SUMMARY A/O, ABLE TO MAKE NEEDS KNOWN. COOPERATIVE WITH CARE. CALLS AND ANSWERS QUESTIONS APPROPRIATELY. C/O PAIN/DISCOMFORT TO R HIP/LEG; MEDICATED PER EMAR. APPEARED TO REST MUCH OF THE NIGHT. NO ACUTE CHANGES NOTED. BED REMAINS IN LOWEST POSITION. CALL LIGHT AND BELONGINGS WITHIN REACH. CONTINUE WITH CURRENT PLAN OF CARE.
--- NOTE | 2021-02-15 06:17 | NUR ---
SHIFT SUMMARY PATIENT ALERT AND ORIENTED. WAS MEDICATED PER EMAR FOR PAIN. NO COMPLAINTS OF SHORTNESS OF BREATH. NO ACUTE ISSUES OVERNIGHT. IV PATENT AND FLUSHED. BED IN LOWEST POSITION WITH WHEELS LOCKED AND ALARM ON. CALL LIGHT WITHIN REACH. REPORT GIVEN TO ONCOMING RN.
[2021-02-15] MEDS ORDERED: ROXICODONE5 MG PT (11:23)
[2021-02-15] MEDS ORDERED: ACET325UDC PO (11:25)
[2021-02-15] MEDS ORDERED: Amlodipine Bes2.5 MG PT (11:25)
[2021-02-15] MEDS ORDERED: ATOR40TA PT (11:26)
[2021-02-15] MEDS ORDERED: BACLOFEN5 M1 PT (11:27)
[2021-02-15] MEDS ORDERED: BISA10S PR (11:28)
[2021-02-15] MEDS ORDERED: LOSA25 PT (11:29)
[2021-02-15] MEDS ORDERED: CLOP75 PO (11:29)
[2021-02-15] MEDS ORDERED: Benadryl Itch28.3 G1 TOP (11:30)
[2021-02-15] MEDS ORDERED: ONDA4 PT (11:31)
[2021-02-15] MEDS ORDERED: DOCU LIQUI50 MG/5 ML PT (11:31)
[2021-02-15] MEDS ORDERED: SIME40L PO (11:32)
--- NOTE | 2021-02-15 12:42 | NUR ---
PT WAS DISCHARGED VIA WHEELCHAIR AND TRANSPORTATION WITH BELONGINGS AND FAMILY AT SIDE. PT IV WAS DC'D AND WNL. MORNING MEDS WERE GIVEN ALONG WITH MORNING FEED WITHOUT ISSUE. REPORT WAS GIVEN TO RECIEVEING FACILITY.
--- NOTE | 2021-02-17 09:23 | NUR ---
Update 02/15/21: Received a call from [facility] with concern that patient's other daughter Phoebe was at the hospital very upset and stating that her mother is not leaving the hospital. I was at home on this day, so I contacted Dr. Ck Lang and advised him of the situation. He went and spoke with Phoebe. Advised her of the reasoning behind the decision. Pt. is appropriate for inpatient PT. She is a good candidate for SNF. IRU was unable to accept pt. due to concern for a lack of progress in extensive IRU program and the overwhelming need currently. Please see additional notes for further details. With the surge in COVID cases, the hospital was no the most appropriate place for the patient to remain. Update 02/14/21 1800: Pt. was accepted to [facility] per director February. Care management team assisted in preparing patient's packet. I arranged transportation for 0900 02/15/21. Called and advised nurse caring for pt. on the floor. My co-worker assisted in contacting family. Call placed to daughter Paulina, as she was the family that Dr. Lang had spoke with this morning. Left message with transport details.
== END 2021-02-15 11:20 | DRG 65 ==
LOC: ER 14:10 → MEDS 17:56 → ERHOLD 17:56 → MEDS 19:45
PROVIDERS: Family Medicine; Internal Medicine; Student in an Organized Health Care Education/Training Program; Surgery; ADMIT Internal Medicine
PROC: 3E0G76Z Introduction of Nutritional Substance into Upper GI, Via Natural or Artificial Opening (ICD-10-PCS; 2021-02-07)
PROC: 0DH63UZ Insertion of Feeding Device into Stomach, Percutaneous Approach (ICD-10-PCS; principal; 2021-02-07 10:30)
DX: I63.512 Cerebral infarction due to unspecified occlusion or stenosis of left middle cerebral artery (principal); G81.91 Hemiplegia, unspecified affecting right dominant side; Z20.822 Contact with and (suspected) exposure to COVID-19; R29.810 Facial weakness; R00.0 Tachycardia, unspecified; R13.12 Dysphagia, oropharyngeal phase; R05 Cough; I10 Essential (primary) hypertension; D72.829 Elevated white blood cell count, unspecified; L25.9 Unspecified contact dermatitis, unspecified cause; E03.9 Hypothyroidism, unspecified; M19.90 Unspecified osteoarthritis, unspecified site; R73.9 Hyperglycemia, unspecified; E78.5 Hyperlipidemia, unspecified; J45.909 Unspecified asthma, uncomplicated; K21.9 Gastro-esophageal reflux disease without esophagitis; Z88.0 Allergy status to penicillin; Z88.6 Allergy status to analgesic agent; Z88.1 Allergy status to other antibiotic agents; Z79.899 Other long term (current) drug therapy; Z87.891 Personal history of nicotine dependence; Z90.49 Acquired absence of other specified parts of digestive tract; Z90.710 Acquired absence of both cervix and uterus; Z98.890 Other specified postprocedural states; Z88.8 Allergy status to other drugs, medicaments and biological substances
CPT/HCPCS: 36415; 51701; 70496; 70553; 71045; 71260; 74230; 80048; 80053; 80061; 81001; 82947; 83735; 84100; 84145; 85025; 85379; 85610; 85730; 92526; 92610; 92611; 93005; 93010; 93880; 94760; 97110; 97112; 97140; 97162; 97166; 97530; 99285-25; A9270; A9579; C1769; G0480; J0330; J0360; J1100; J1885; J1956; J2405; J2704; J3010; J7030; J7120; Q9967; U0004

== ENCOUNTER → 2021-03-06 | Outpatient (CLI) | payer OTHER ==
[~2021-03-06] MED LIST changes: +ACET325UDC PO; +ATOR40TA PT; +Amlodipine Bes2.5 MG PT; +BACLOFEN5 M1 PT; +BISA10S PR; +Benadryl Itch28.3 G1 TOP; +CLOP75 PO; +DOCU LIQUI50 MG/5 ML PT; +ESTRADIOL1 MG PO; +LOSA25 PT; +MONT10T PO; +NEURONTIN300 MG PO; +ONDA4 PT; +Prinivil10 MG PO; +ROXICODONE5 MG PT; +SIME40L PO; +TRAM50 PO; +Ventolin/Prove6.7 GM INH
[2021-03-06 12:44] LABS: Appearance, Urine Hazy (Clear); Bilirubin, Urine Neg (Neg); Blood, Urine 5+ (Neg); Color, Urine Yellow (P-Yellow); Glucose Qualitative, Urine Neg (Neg); Ketones, Urine Neg (Neg); Leukocyte Esterase, Urine 3+ (Neg); Nitrite, Urine Neg (Neg); Protein, Urine 1+ (Neg); Urobilinogen, Urine NORM (Normal)
[2021-03-06 13:23] LABS: Bacteria Mod /hpf; Squamous Epithelial Cells Few /hpf (Few)
[2021-03-06 13:24] LABS: Amorphous Light (0-Heavy)
[2021-03-06 13:25] LABS: Mucus Mod (0-Heavy)
== END | disposition home or self-care (01) ==
LOC: LAB SHORT 10:00
PROVIDERS: Nurse Practitioner
DX: N39.0 Urinary tract infection, site not specified (principal)
CPT/HCPCS: 81001; 87077; 87086; 87186

== ENCOUNTER → 2021-06-09 | Outpatient (CLI) | payer OTHER ==
[2021-06-09 16:08] LABS: Alanine Aminotransfer (ALT/SGP 18 U/L (12-78); Albumin, Blood 3.2 g/dL (3.4-5.0); Albumin/Globulin Ratio 1.1 (0.8-1.8); Alk Phos 73 U/L (50-136); Anion Gap 6 mmol/L (6-16); Aspartate Aminotrans (AST/SGOT 16 U/L (12-37); Bilirubin, Total 0.7 mg/dL (0.1-1.0); Blood Urea Nitrogen 7 mg/dL (8-24); Bun/Creatinine Ratio 9.7 (12.0-20.0); CO2, Blood 31 mmol/L (21-32); Calcium, Blood 8.8 mg/dL (8.5-10.1); Chloride, Blood 101 mmol/L (98-108); Creatinine, Blood 0.72 mg/dL (0.40-1.00); Globulin, Blood 2.8 g/dL (2.2-4.0); Glomerular Filtration Rate >60 (60-); Glucose, Blood 131 mg/dL (70-99); Potassium, Blood 3.5 mmol/L (3.5-5.5); Sodium, Blood 138 mmol/L (136-145)
[2021-06-09 16:13] LABS: Thyroid Stimulating Hormone 0.965 uIU/mL (0.360-4.800)
== END | disposition home or self-care (01) ==
LOC: LAB SHORT 15:11 → LAB HH 15:11
PROVIDERS: Family Medicine
DX: I69.351 Hemiplegia and hemiparesis following cerebral infarction affecting right dominant side (principal); I69.391 Dysphagia following cerebral infarction; R13.12 Dysphagia, oropharyngeal phase
CPT/HCPCS: 80053; 84443

== ENCOUNTER → 2021-10-28 | Outpatient (CLI) | payer OTHER ==
[2021-10-28 09:51] LABS: Anion Gap 6 mmol/L (6-16); Blood Urea Nitrogen 14 mg/dL (8-24); Bun/Creatinine Ratio 25.3 (12.0-20.0); CO2, Blood 29 mmol/L (21-32); Chloride, Blood 108 mmol/L (98-108); Cholesterol 149 mg/dL (50-200); Creatinine, Blood 0.55 mg/dL (0.40-1.00); Glomerular Filtration Rate >60 (60-); Glucose, Blood 86 mg/dL (70-99); HDL Cholesterol 50 mg/dL (>39); LDL/HDL RATIO 1.6; Low Density Lipoprotein Chol 80 mg/dL (0-110); Magnesium, Blood 2.1 mg/dL (1.6-2.4); Potassium, Blood 3.6 mmol/L (3.5-5.5); Sodium, Blood 143 mmol/L (136-145); Triglycerides 94 mg/dL (30-160); Very Low Density Lipoprot Chol 18 mg/dL (6-32)
== END | disposition home or self-care (01) ==
LOC: LAB SHORT 07:30 → LAB 07:30
PROVIDERS: Family Medicine
DX: E78.2 Mixed hyperlipidemia (principal); M62.830 Muscle spasm of back; R73.03 Prediabetes
CPT/HCPCS: 80048; 80061; 83036; 83735

== ENCOUNTER 2022-04-24 08:03 | Day surgery (SDC) | payer OTHER ==
[~2022-04-24] VITALS: Ht 165.1 cm; Wt 59.0 kg
[2022-04-24] MEDS ORDERED: CILO100 PO (08:42)
[2022-04-24] MEDS ORDERED: Flonase 0.05% N16 GM (08:48)
[2022-04-24] MEDS ORDERED: VITAMIN D32000 UNI2 PO (08:50)
[2022-04-24] MEDS ORDERED: Norflex100 MG (08:51)
[2022-04-24] MEDS ORDERED: SENN187 PO (08:51)
[2022-04-24] MEDS ORDERED: MIRALAX17 GM PO (08:52)
[2022-04-24] MEDS ORDERED: MONT10T PO (08:52)
[2022-04-24] MEDS ORDERED: LOPE2C PO (08:53)
--- NOTE | 2022-04-24 08:56 | NUR ---
History, Chart, Medications and Allergies reviewed before start of procedure.Patient confirms NPO status and agrees with scheduled surgery. Pre-Op teaching done. Pt verbalizes understanding. Patient States Post-Procedure ride home has been arranged.
--- NOTE | 2022-04-24 09:07 | NUR ---
04/24/22 0907 Nico Jane History, Chart, Medications and Allergies reviewed before start of procedure. DR. EMANUEL PROVIDED ANESTHESIA
--- NOTE | 2022-04-24 10:30 | NUR ---
DISCHARGE PT UP TO W/C WITH ASSISTANCE. PT'S DAUGHTER ASSISTED PT WITH DRESSING HER. PT ABD DRESSING REMAINS C/D/I. PT TOLERATING WATER WITHOUT DIFFICULTY. PT DENIES PAIN TO ABD. Discharge instructions reviewed with patient. Patient verbalizes understanding. Copy given to patient to take home, [facility]. ALSO DISCUSSED PT'S DISCHARGE INSTRUCTIONS WITH CAREGIVER AT [facility]. Patient States Post-Procedure ride home has been arranged WITH [facility]. Discharged via wheelchair TO [facility].
== END 2022-04-24 10:30 | disposition home or self-care (01) ==
LOC: ORSCMMR 08:03 → ORD 09:30 → ORSCMMR 09:30
PROVIDERS: Surgery
PROC: 0DJ08ZZ Inspection of Upper Intestinal Tract, Via Natural or Artificial Opening Endoscopic (ICD-10-PCS; principal; 2022-04-24 09:30)
DX: Z93.1 Gastrostomy status (principal); G47.33 Obstructive sleep apnea (adult) (pediatric); I10 Essential (primary) hypertension; J45.909 Unspecified asthma, uncomplicated; Z79.01 Long term (current) use of anticoagulants; Z79.899 Other long term (current) drug therapy
CPT/HCPCS: 82947; J1100; J2001; J2370; J2405; J2704; J3010; J7120

== ENCOUNTER 2024-06-15 15:11 | Inpatient (IN) | payer OTHER ==
[~2024-06-15] VITALS: Ht 162.6 cm; Wt 62.2 kg
[~2024-06-15 15:11] MED LIST changes: +ATOR40TA PO; -ATOR40TA PT; +Amlodipine Bes2.5 MG PO; -Amlodipine Bes2.5 MG PT; +CILO100 PO; +Flonase 0.05% N16 GM; +GABA800 PO; +LEVSOD100 PO; -LEVSOD100 PT; +LOPE2C PO; -LOSA25 PT; +LOSA50 PO; +MIRALAX17 GM PO; -NEURONTIN300 MG PO; +Orphenadrine C100 MG PO; +SENN187 PO; +VITAMIN D32000 UNI2 PO
[2024-06-15 15:41] LABS: Source, Urine Clean Catch
[2024-06-15 15:48] LABS: BASOPHILS ABSOLUTE AUTO 0.07 K/mm3 (0.00-0.23); BASOPHILS PERCENT AUTO 1 % (0-2); EOSINOPHILS ABSOLUTE AUTO 0.19 K/mm3 (0.00-0.68); EOSINOPHILS PERCENT AUTO 2 % (0-6); Hematocrit 31.5 % (33.0-51.0); Hemoglobin 10.3 g/dL (11.5-16.0); IMMATURE GRAN ABSOLUTE AUTO 0.04 K/mm3 (0.00-0.10); IMMATURE GRAN PERCENT AUTO 1 % (0-1); LYMPHOCYTES ABSOLUTE AUTO 1.26 K/mm3 (0.84-5.20); LYMPHOCYTES PERCENT AUTO 14 % (21-46); MONOCYTES ABSOLUTE AUTO 0.76 K/mm3 (0.16-1.47); MONOCYTES PERCENT AUTO 9 % (4-13); Mean Corpuscular HGB 32.1 pg (26.0-34.0); Mean Corpuscular HGB Conc 32.7 g/dL (31.5-36.5); Mean Corpuscular Volume 98 fL (80-100); Mean Platelet Volume 9.7 fL (9.1-12.4); NEUTROPHILS ABSOLUTE AUTO 6.45 K/mm3 (1.96-9.15); NEUTROPHILS PERCENT AUTO 73 % (41-73); Platelet Count 330 K/mm3 (150-400); RDW Coefficient Variation 12.6 % (11.7-14.2); RDW Standard Deviation 45.8 fL (35.1-46.3); Red Blood Cell Count 3.21 M/mm3 (3.80-5.20); White Blood Cell Count 8.77 K/mm3 (4.00-11.30)
[2024-06-15 15:48] LABS: Appearance, Urine Hazy (Clear); Bilirubin, Urine Neg (Neg); Blood, Urine 2+ (Neg); Color, Urine Yellow (P-Yellow); Glucose Qualitative, Urine Neg (Neg); Ketones, Urine Neg (Neg); Leukocyte Esterase, Urine 2+ (Neg); Nitrite, Urine Pos (Neg); Protein, Urine 1+ (Neg); Specific Gravity, Urine 1.025 (1.003-1.022); Urobilinogen, Urine NORM (Normal)
[2024-06-15 15:58] LABS: White Blood Cells, Urine 25-50 /hpf (0-5)
[2024-06-15 15:59] LABS: Bacteria Many /hpf; Red Blood Cells, Urine 0-2 /hpf (0-2); Squamous Epithelial Cells Rare /hpf (Few)
[2024-06-15 16:17] LABS: Albumin, Blood 3.5 g/dL (3.4-5.0); Albumin/Globulin Ratio 1.1 (0.8-1.8); Bilirubin, Total 0.3 mg/dL (0.1-1.0); Bun/Creatinine Ratio 26.1 (12.0-20.0); Calcium, Blood 8.9 mg/dL (8.5-10.1); Creatinine, Blood 0.77 mg/dL (0.40-1.00); Free Thyroxine 1.17 ng/dL (0.70-1.60); Globulin, Blood 3.1 g/dL (2.2-4.0); Potassium, Blood 4.2 mmol/L (3.5-5.5); Thyroid Stimulating Hormone 4.92 uIU/mL (0.360-4.800); Total Protein, Blood 6.6 g/dL (6.4-8.2)
[2024-06-15] MEDS ORDERED: NITR100CA PO (17:49)
[2024-06-15] MEDS ORDERED: NS 1,000 ML IV SCH ×2 (18:05→19:35)
[2024-06-15] MEDS ORDERED: Ciprofloxacin 400MG/D5 200ML 200 ML IV ONE (18:15)
[2024-06-15] MEDS ORDERED: Acetaminophen 500 MG Tab PO ONE (18:15)
[2024-06-15] MEDS ORDERED: FLU VACC TS2024-25(6MOS UP)/PF 45 MCG/0.5 ML SYRINGE IM SCH (19:35)
[2024-06-15] MEDS ORDERED: Ondansetron HCl 2 MG / ML 2ML Vial IV PRN (19:35)
--- NOTE | 2024-06-15 20:45 | NUR ---
NEW ADMIT. PATIENT ADMITTED TO ROOM 344 FROM THE ER. PATIENT ARRIVED TO ROOM VIA GURNEY AND 1P TRANSPORT. PATIENT TRANSFERED FROM [facility] TO HOSPITAL BED WITH SLIDE SHEET AND 3P ASSIST. PATIENT ARRIVED TO ROOM WITH DAUGHTER AT BEDSIDE. PATIENT IN STREET SHIRT AND ATTENDS IN PLACE. THIS RN TO ASSUME PATIENT CARE.
[2024-06-15 20:56] VITALS: BP 140/119
[2024-06-15] MEDS ORDERED: Lactobacil 2-S.Thermo-Bifido 1 1 Cap PO SCH (21:00)
[2024-06-15] MEDS ORDERED: Trimethoprim/Sulfamethoxazole DS Tab PO SCH (21:00)
[2024-06-15] MEDS ORDERED: QUETIAPINE FUMA25 MG PO (21:22)
[2024-06-15] MEDS ORDERED: ACETAMINOPHEN500 MG PO (21:24)
[2024-06-16] MEDS ORDERED: FentaNYL Citrate 50 MCG/ML 2 ML Injection IV PRN (00:40)
[2024-06-16 02:35] VITALS: BP 144/74
--- NOTE | 2024-06-16 05:02 | NUR ---
SHIFT SUMMARY. PATIENT IS A&OX3-4 WITH CONFUSION. 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 PATIENT HAS CHRONIC HIP BEKAH-PATIENT TO HAVE HIP SURGERY PRIOR TO CVA-CVA PREVENTED SURGERY PER PATIENTS DAUGHTER. PATIENT CALLS OFTEN. PATIENT HAS A STUTTER BUT IS ABLE TO MAKE HER NEEDS KNOWN. PUREWICK IN PLACE FOR URGENCY/FREQUENCY AND PAIN. TELE IN ON WITH LEADS IN PLACE. BED IS LOCKED IN THE LOWEST POSITION WITH CALL LIGHT IN REACH. CARE IS ONGOING.
[2024-06-16 07:41] VITALS: BP 166/71
[2024-06-16] MEDS ORDERED: Enoxaparin 40 MG/0.4 ML SYR SC SCH (09:00)
[2024-06-16 10:14] LABS: BASOPHILS ABSOLUTE AUTO 0.07 K/mm3 (0.00-0.23); BASOPHILS PERCENT AUTO 1 % (0-2); EOSINOPHILS PERCENT AUTO 1 % (0-6); Hematocrit 31.3 % (33.0-51.0); Hemoglobin 10.5 g/dL (11.5-16.0); IMMATURE GRAN ABSOLUTE AUTO 0.02 K/mm3 (0.00-0.10); IMMATURE GRAN PERCENT AUTO 0 % (0-1); LYMPHOCYTES ABSOLUTE AUTO 1.24 K/mm3 (0.84-5.20); LYMPHOCYTES PERCENT AUTO 16 % (21-46); MONOCYTES PERCENT AUTO 7 % (4-13); Mean Corpuscular HGB 32.2 pg (26.0-34.0); Mean Corpuscular HGB Conc 33.5 g/dL (31.5-36.5); Mean Corpuscular Volume 96 fL (80-100); Mean Platelet Volume 9.4 fL (9.1-12.4); NEUTROPHILS ABSOLUTE AUTO 5.63 K/mm3 (1.96-9.15); NEUTROPHILS PERCENT AUTO 75 % (41-73); Platelet Count 297 K/mm3 (150-400); RDW Coefficient Variation 12.5 % (11.7-14.2); RDW Standard Deviation 44.4 fL (35.1-46.3); Red Blood Cell Count 3.26 M/mm3 (3.80-5.20); White Blood Cell Count 7.56 K/mm3 (4.00-11.30)
[2024-06-16 10:39] LABS: Bun/Creatinine Ratio 18.5 (12.0-20.0); Calcium, Blood 8.6 mg/dL (8.5-10.1); Creatinine, Blood 0.6 mg/dL (0.40-1.00)
[2024-06-16] MEDS ORDERED: Acetaminophen 500 MG Tab PO PRN (12:10)
[2024-06-16] MEDS ORDERED: Sennosides 8.6 MG Tab PO PRN (12:10)
[2024-06-16] MEDS ORDERED: Loperamide HCl 2 MG Cap PO PRN (12:10)
[2024-06-16] MEDS ORDERED: Polyethylene Glycol 3350 17 gm PO PRN (12:15)
[2024-06-16] MEDS ORDERED: LORazepam 0.5 MG Tab PO PRN (12:15)
[2024-06-16] MEDS ORDERED: Fluticasone 0.05% Nasal Spray PRN (12:15)
[2024-06-16 13:26] LABS: Percent Saturation 17.4 % (15.0-50.0)
[2024-06-16] MEDS ORDERED: Pregabalin 50 MG Capsule PO SCH (14:00)
[2024-06-16 16:13] VITALS: BP 167/62
--- NOTE | 2024-06-16 17:41 | NUR ---
SHIFT SUMMARY PT A&OX3-4 W/ STUTTERED SPEECH THAT IS BASELINE, BEDRIDDEN AT THIS TIME, VOIDING, AND PAIN MANAGED PER EMAR. PT HYPERTENSIVE, BUT ASYMPTOMATIC. PT HAD ANXIETY DURING VITALS AND T/O SHIFT. THIS NURSE CALLED AND RECEIVED ORDER FOR ONE TIME ATIVAN. ATIVAN GIVEN PER ORDER. PT APPEARED TO SLEEP RESTFULLY FOR APPROX 3 HOURS BEFORE CALLING OUT AND NOT USING THE CALL LIGHT AAPPROPRIATELY. ECHO COMPLETED THIS SHIFT. CALL LIGHT WITHIN REACH AND BED ALARM ON FOR SAFETY.
[2024-06-16 19:35] VITALS: BP 145/66
[2024-06-16] MEDS ORDERED: Cilostazol 50 MG Tab PO SCH (21:00)
[2024-06-16] MEDS ORDERED: QUEtiapine Fumarate 25 MG Tab PO SCH (21:00)
[2024-06-16] MEDS ORDERED: OxyCODONE HCL 5 MG TAB PO PRN (21:55)
[2024-06-17 04:24] VITALS: BP 132/58
--- NOTE | 2024-06-17 04:46 | NUR ---
SHIFT SUMMARY PT A&Ox3. PT ANXIOUS AT START OF THE SHIFT AND USED THE CALL LIGHT FREQUENTLY. PT C/O PAIN IN LEGS THAT IS CHRONIC. PT REPOSITIONED AND MEDICATED PER EMAR WITH GOOD EFFECT. PT ABLE TO SLEEP MOST OF THE NIGHT. VSS. NO EVENTS ON TELE. BED ALARM ON. BED IN LOWEST POSITION AND CALL LIGHT IN REACH.
[2024-06-17] MEDS ORDERED: Levothyroxine Sodium 0.1 MG Tab PO SCH (06:00)
[2024-06-17 06:16] LABS: Hemoglobin 10.2 g/dL (11.5-16.0); Mean Corpuscular HGB 31.7 pg (26.0-34.0); Mean Corpuscular HGB Conc 32.9 g/dL (31.5-36.5); Mean Corpuscular Volume 96 fL (80-100); Mean Platelet Volume 9.7 fL (9.1-12.4); Platelet Count 317 K/mm3 (150-400); RDW Coefficient Variation 12.6 % (11.7-14.2); RDW Standard Deviation 44.3 fL (35.1-46.3); Red Blood Cell Count 3.22 M/mm3 (3.80-5.20); White Blood Cell Count 7.44 K/mm3 (4.00-11.30)
[2024-06-17 06:38] LABS: Bun/Creatinine Ratio 14.6 (12.0-20.0); Creatinine, Blood 0.69 mg/dL (0.40-1.00); Potassium, Blood 4.1 mmol/L (3.5-5.5)
[2024-06-17 07:19] VITALS: BP 146/58
[2024-06-17] MEDS ORDERED: Montelukast Sodium 10 MG Tab PO SCH (09:00)
[2024-06-17] MEDS ORDERED: Atorvastatin 40 MG Tab PO SCH (09:00)
[2024-06-17] MEDS ORDERED: Clopidogrel Bisulfate 75 MG Tab PO SCH (09:00)
[2024-06-17] MEDS ORDERED: HyDROXyzine HCl 25 MG Tab PO SCH (10:00)
[2024-06-17 13:20] VITALS: BP 143/63
--- NOTE | 2024-06-17 13:20 | NUR ---
TELE CALLED REPORTS [facility]. PT DENIES CHEST PAIN PRESSURE. SHE STATES ACTUALLY FEELS PRETTY GOOD. BP 143/63, P 83. CALLED DR GUSTAFSON. EKG ORDERS.
[2024-06-17] MEDS ORDERED: LORazepam 1 MG Tab PO PRN (14:50)
[2024-06-17 15:18] VITALS: BP 161/69
[2024-06-17] MEDS ORDERED: LORazepam 1 MG Tab PO SCH (16:00)
--- NOTE | 2024-06-17 17:21 | NUR ---
PT PLEASANT TODAY. WAS ANXIOUS THIS AM. ORDERS FOR ATARAX. PT IMPROVED. CONCERNS FOR [facility] ON TELE. DISCUSSED WITH DR. BULLOCK REVIEWED BY , TROP NEG. NO NEW CHANGES. FAMILY IN ROOM TO VISIT TODAY. NO OTHER CHANGES NOTED TODAY. BED IN LOW POSITION, CALL LITE IN REACH, CALLS APPROP
[2024-06-17 19:13] VITALS: BP 152/69
[2024-06-18 04:18] VITALS: BP 137/69
--- NOTE | 2024-06-18 05:00 | NUR ---
SHIFT SUMMARY PT A&Ox3. PT SEEMED LESS ANXIOUS THIS SHIFT. PT CONTINUES TO HAVE PAIN IN LEGS BUT MEDICATED PER EMAR WITH GOOD EFFECT. URINE APPEARS LESS BROWN AND MORE YELLOW THIS SHIFT. VSS. BED ALARM ON. BED IN LOWEST POSITION AND CALL LIGHT IN REACH.
[2024-06-18 05:52] LABS: Hematocrit 30.9 % (33.0-51.0); Hemoglobin 10.2 g/dL (11.5-16.0)
[2024-06-18 07:16] VITALS: BP 149/62
--- NOTE | 2024-06-18 11:46 | NUR ---
[facility] FAX MACHINE [phone] IF DISCHARGED
[2024-06-18] MEDS ORDERED: HYDHCL25 PO (14:12)
--- NOTE | 2024-06-18 15:57 | NUR ---
TRANSPORTATION SET UP WITH [facility], NOTIFIED THE DAUGHTER BERNA [phone], OF PAYMENT NEEDED AND TO CALL [facility] [phone]
--- NOTE | 2024-06-18 15:57 | NUR ---
DISCHARGE REIVEWED WITH PT. IV PULLED BY AIDE. TELE D/C PRIOR. PT DRESSED. PEND WHEELCHAIR TRANSPORT. MEDS FAXED TO [facility]. TRANSPORT NOTIFIED. DAUGHTER NOTIFIED FOR TRANSPORT TO BE THERE WHEN ARRIVE TO FACILITY.
--- NOTE | 2024-06-18 17:30 | NUR ---
PT OUT WITH TRANSPORT AT [id number]
== END 2024-06-18 16:35 | disposition home or self-care (01) | DRG 690 ==
LOC: ER 15:11 → MEDS 15:12
PROVIDERS: Student in an Organized Health Care Education/Training Program; ADMIT Internal Medicine
DX: N39.0 Urinary tract infection, site not specified (principal); I69.351 Hemiplegia and hemiparesis following cerebral infarction affecting right dominant side; Z99.3 Dependence on wheelchair; I10 Essential (primary) hypertension; E03.9 Hypothyroidism, unspecified; K21.9 Gastro-esophageal reflux disease without esophagitis; D64.9 Anemia, unspecified; E78.00 Pure hypercholesterolemia, unspecified; R45.1 Restlessness and agitation; Z88.0 Allergy status to penicillin; Z88.6 Allergy status to analgesic agent; Z88.1 Allergy status to other antibiotic agents; Z88.8 Allergy status to other drugs, medicaments and biological substances; Z90.49 Acquired absence of other specified parts of digestive tract; Z90.710 Acquired absence of both cervix and uterus; Z98.890 Other specified postprocedural states
CPT/HCPCS: 36415; 51701; 70450; 80048; 80053; 81001; 82607; 82728; 82746; 83540; 83550; 83605; 84439; 84443; 84484; 85014; 85018; 85025; 85027; 87040; 87077; 87086; 87186; 93005; 93010; 93306; 96365; 96372; 96375; 96376; 99285-25; A9270; G0378; J0744; J1650; J2405; J3010; J7030

== ENCOUNTER 2024-07-06 12:06 | Observation (INO) | payer OTHER ==
[2024-07-06] VITALS (20 sets, daily range): BP systolic 101–192; BP diastolic 33–84
[~2024-07-06] VITALS: Ht 172.7 cm; Wt 61.2 kg
[~2024-07-06 12:06] MED LIST changes: +ACETAMINOPHEN500 MG PO; +HYDHCL25 PO; +NITR100CA PO; +QUETIAPINE FUMA25 MG PO
[2024-07-06] MEDS ORDERED: NS 1,000 ML IV SCH ×2 (12:35→17:00)
[2024-07-06 12:52] LABS: BASOPHILS ABSOLUTE AUTO 0.03 K/mm3 (0.00-0.23); BASOPHILS PERCENT AUTO 0 % (0-2); EOSINOPHILS PERCENT AUTO 0 % (0-6); Hematocrit 18.9 % (33.0-51.0); Hemoglobin 6.3 g/dL (11.5-16.0); IMMATURE GRAN ABSOLUTE AUTO 0.08 K/mm3 (0.00-0.10); IMMATURE GRAN PERCENT AUTO 1 % (0-1); LYMPHOCYTES ABSOLUTE AUTO 0.75 K/mm3 (0.84-5.20); LYMPHOCYTES PERCENT AUTO 6 % (21-46); MONOCYTES ABSOLUTE AUTO 0.52 K/mm3 (0.16-1.47); MONOCYTES PERCENT AUTO 4 % (4-13); Mean Corpuscular HGB 32.5 pg (26.0-34.0); Mean Corpuscular HGB Conc 33.3 g/dL (31.5-36.5); Mean Corpuscular Volume 97 fL (80-100); Mean Platelet Volume 9.8 fL (9.1-12.4); NEUTROPHILS ABSOLUTE AUTO 10.67 K/mm3 (1.96-9.15); NEUTROPHILS PERCENT AUTO 89 % (41-73); Platelet Count 304 K/mm3 (150-400); RDW Coefficient Variation 12.5 % (11.7-14.2); RDW Standard Deviation 43.9 fL (35.1-46.3); Red Blood Cell Count 1.94 M/mm3 (3.80-5.20); White Blood Cell Count 12.05 K/mm3 (4.00-11.30)
[2024-07-06 13:24] LABS: Albumin, Blood 2.9 g/dL (3.4-5.0); Albumin/Globulin Ratio 1.1 (0.8-1.8); Bilirubin, Total 0.7 mg/dL (0.1-1.0); Calcium, Blood 8.4 mg/dL (8.5-10.1); Creatinine, Blood 0.89 mg/dL (0.40-1.00); Globulin, Blood 2.6 g/dL (2.2-4.0); Potassium, Blood 3.9 mmol/L (3.5-5.5); Total Protein, Blood 5.5 g/dL (6.4-8.2)
[2024-07-06] MEDS ORDERED: Pantoprazole Sodium 40 MG in NS 50 ML IV SCH ×2 (13:25→16:20)
[2024-07-06] MEDS ORDERED: Pantoprazole Sodium 40 MG Injection IV ONE (13:25)
[2024-07-06 13:46] LABS: Source, Urine Clean Catch
[2024-07-06 13:52] LABS: Appearance, Urine Clear (Clear); Bilirubin, Urine Neg (Neg); Blood, Urine 1+ (Neg); Color, Urine Yellow (P-Yellow); Glucose Qualitative, Urine Neg (Neg); Ketones, Urine Neg (Neg); Leukocyte Esterase, Urine Neg (Neg); Nitrite, Urine Neg (Neg); Protein, Urine 1+ (Neg); Specific Gravity, Urine 1.015 (1.003-1.022); Urobilinogen, Urine NORM (Normal)
[2024-07-06 14:05] LABS: Amorphous Light (0-Heavy); Bacteria Few /hpf; Red Blood Cells, Urine 0-2 /hpf (0-2); Squamous Epithelial Cells Rare /hpf (Few); White Blood Cells, Urine 0-2 /hpf (0-5)
[2024-07-06] MEDS ORDERED: OXYC5 (15:57)
[2024-07-06] MEDS ORDERED: FLU VACC TS2024-25(6MOS UP)/PF 45 MCG/0.5 ML SYRINGE IM SCH (16:05)
[2024-07-06] MEDS ORDERED: Pantoprazole Sodium 40 MG Injection IV SCH (16:15)
[2024-07-06] MEDS ORDERED: Ondansetron HCl 2 MG / ML 2ML Vial ONE (16:59)
[2024-07-06] MEDS ORDERED: Ondansetron HCl 2 MG / ML 2ML Vial IV ONE (17:00)
[2024-07-06 18:00] LABS: Hematocrit 19.6 % (33.0-51.0); Hemoglobin 6.5 g/dL (11.5-16.0)
[2024-07-06] MEDS ORDERED: Metoclopramide HCl 5MG / ML 2ML Vial IV ONE (18:05)
[2024-07-06] MEDS ORDERED: Lactated Ringer's 1,000 ML IV SCH ×2 (18:25→18:55)
[2024-07-06] MEDS ORDERED: EpiNEPhrine 1 MG/1 ML 1ML Vial ONE (18:40)
--- NOTE | 2024-07-06 18:54 | NUR ---
PT ARRIVES TO ICU ROOM 4, MUMBLING AND REPEATING WORDS THAT HAVE BEEN SAID TO HER.SHE REACHES OUT WITH HER LEFT HAND, RIGHT ARM CONTRACTED UP TO HER CHEST, HER CHEST IS COVERED IN ECCHYMOSIS FROM RIGHT MID CLAVICLE TO RIGHT NECK TO RIGHT BICEP. PT'S RIGHT LEG PULLED UP NEXT TO HER, C/O PAIN TO LEFT LEG REPORTED FROM ED RN. PT RECEIVING UNIT OF BLOOD, PROTONIX, AND 1 LITER OF NS. NC ON BUT NOT CONNECTED TO OXYGEN, SATS 100%, BP 130'S/40'S HR 120. SCOPE CREW OUTSIDE OF ROOM. FAMILY IN WAITING ROOM.
[2024-07-06] MEDS ORDERED: propofoL 100 ML IV ONE (19:44)
[2024-07-06] MEDS ORDERED: propofoL 100 ML IV SCH (19:45)
[2024-07-06 19:49] LABS: Hematocrit 21.4 % (33.0-51.0); Hemoglobin 7.2 g/dL (11.5-16.0)
--- NOTE | 2024-07-06 20:22 | NUR ---
07/06/242021 Kalyan Burrell History, Chart, Medications and Allergies reviewed before start of procedure.See Anesthesia record.
[2024-07-06 21:39] LABS: CORONAVIRUS COVID-19 AG Negative (NEGATIVE); INFLUENZA A AG Positive (NEGATIVE); INFLUENZA B AG Negative (NEGATIVE)
[2024-07-06] MEDS ORDERED: Esmolol HCL 10 MG/ML 10ML VIAL INJ ONE (21:57)
[2024-07-06] MEDS ORDERED: Midazolam HCl 1MG / ML 2ML Vial IM ONE (21:57)
[2024-07-06] MEDS ORDERED: Etomidate 2MG / ML 10ML Vial IV ONE (21:57)
[2024-07-06] MEDS ORDERED: Propofol 10mg/ml 20 ml Vial (Procedural) IV ONE (21:57)
[2024-07-06] MEDS ORDERED: Rocuronium Bromide 10 MG/ML 5ML Injection IV ONE (21:57)
[2024-07-06] MEDS ORDERED: SuccINYLCHOLINE Chloride 100 MG/5 ML 5MLSYR IV ONE (21:57)
--- NOTE | 2024-07-06 23:59 | NUR ---
BLOCK CHARTING FOR ASSUMPTION OF CARE AT 1900 TO TRANSFER OF CARE TO [facility] VIA [facility] AT 2359. REPORT RECEIVED FROM DAY NURSE AT 1915. PT ALERT, MUMBLING SEVERELY THOUGH UNDERSTANDABLE. ALSO C/O RIGHT LEG CRAMPS. SURGICAL STAFF IN ROOM AT TIME. SITUATED. ANESTHESIOLOGIST ASKED FOR PROPOFOL BOTTLE FOR INTUBATION AND PROCEDURAL SEDATION. PT RECEIVED VERSED, ROCURONIUM AND PROPOFOL FOR PROCEDURE BY DR HERNANDES WHICH FOUND BLEEDING MASSES JUST PROXIMAL TO THE ESOPHAGEAL/STOMACH JUNCTION. BECAUSE OF LACK OF SPECIFIC EQUIPMENT REQUIRED FOR TREATMENT/ STOPPING OF BLEEDING, DR HERNANDES FOUND BED FOR PT AT [facility] AND PT WAS TRANSFERRED OUT VIA [facility] WHO LEFT THE ROOM AT 2359. AT THAT TIME THE PT WAS IN SINUS TACH WITH STABLE BP THOUGH DECREASED DIASTOLIC BP. PT INTUBATED ON VOLUME CONTROL AT 400ML 10/MIN AND 30% FIO2 AND 5.0 PEEP. ETT TUBE IS 7.0 AND 21CM AT TEETH. PT BREATHING OVER VENT ON PROPFOL 65 MCG/KG/MIN. PT ALSO ON LR 150 AND PROTONIX 10ML/HR. NO OG TUBE IN PLACE DUE TO LACK OF CLARIFICATION FROM PROVIDERS NOR TIME TO INVESTIGATE. [facility] SENT WITH PHONE NUMBER FOR CECILIO IN CASE THE PT STARTED SHOWING SIGNS OF EMERGENTLTY NEEDED GASTRIC EMPTYING/SUCTIONING. PT RECEIVED 3 UNTIS OF PRBC TODAY, ONE OF WHICH WAS DURING AND AFTER PROCEDURE. DELAROSA WAS PLACED SHORTLY BEFORE TRANSFER OUT. PT'S DAUGHTER, DWIGHT, WAS NOTIFIED OF TRANSFER, AND AT [facility] ICU AT [facility] WERE GIVEN REPORT AND NOTIFIED OF PT EXITING [facility] ICU.
== END 2024-07-07 00:03 | disposition short-term general hospital (02) ==
LOC: ER 12:06 → ICUE 12:07
PROVIDERS: Anesthesiology; Emergency Medicine; Internal Medicine Gastroenterology; ADMIT Family Medicine
PROC: 0DJ08ZZ Inspection of Upper Intestinal Tract, Via Natural or Artificial Opening Endoscopic (ICD-10-PCS; principal; 2024-07-06 19:00)
DX: K22.89 Other specified disease of esophagus (principal); D62 Acute posthemorrhagic anemia; K92.0 Hematemesis; K92.1 Melena; R57.1 Hypovolemic shock; G92.8 Other toxic encephalopathy; I35.0 Nonrheumatic aortic (valve) stenosis; S20.219A Contusion of unspecified front wall of thorax, initial encounter; W18.30XA Fall on same level, unspecified, initial encounter; Z86.0101 Personal history of adenomatous and serrated colon polyps; I69.951 Hemiplegia and hemiparesis following unspecified cerebrovascular disease affecting right dominant side; I10 Essential (primary) hypertension; E03.9 Hypothyroidism, unspecified; J45.909 Unspecified asthma, uncomplicated; E78.2 Mixed hyperlipidemia; E11.319 Type 2 diabetes mellitus with unspecified diabetic retinopathy without macular edema; Z87.891 Personal history of nicotine dependence; Z88.0 Allergy status to penicillin; Z88.1 Allergy status to other antibiotic agents; Z88.6 Allergy status to analgesic agent; Z88.8 Allergy status to other drugs, medicaments and biological substances; Z79.02 Long term (current) use of antithrombotics/antiplatelets; Z79.899 Other long term (current) drug therapy
CPT/HCPCS: 31500; 36430; 51701; 51702; 71045; 80053; 81001; 82550; 84484; 85014; 85018; 85025; 86850; 86900; 86901; 86923; 87428-QW; 93005; 93010; 94002; 96365; 96366; 96368; 96374; 96375; 96376; 99285-25; G0378; J0171; J0330; J2250; J2405; J2470; J2704; J2765; J7030; J7120; P9016